=== PATIENT | male | born 1935 | race Caucasian/White ===

== ENCOUNTER → 2017-12-12 | Day surgery (SDC) | payer OTHER, MEDICARE ==
[~2017-12-12] VITALS: Ht 182.9 cm; Wt 73.9 kg
[~2017-12-12] MED LIST: AMIODARONE HCL100 M1 PO; AMIODARONE HCL200 M1 PO; ASPIRIN CHILDRE81 MG PO; AUGMENTIN 875-1 EACH PO; CEFTIN500 M1 PO; CENTRUM SILVER1 EAC3 PO; CENTRUM SILVER1 TA1 PO; DOXAZOSIN MESYLA4 M1 PO; DOXAZOSIN MESYLA4 MG PO; ELIQUIS2.5 M1 PO; ELIQUIS5 M1 PO; FUROSEMIDE20 M1 PO; GLUCOSAMINE & C1 CAP PO; GLUCOSAMINE &1 EAC1 PO; KLOR-CON M2020 ME1 PO; LASIX40 M1 PO; LEUKERAN2 MG PO; LIPITOR20 M2 PO; LOPRESSOR 25MG25 MG PO; LOPRESSOR100 M1 PO; LOPRESSOR50 M1 PO; LOPRESSOR50 MG PO; LOVAZA1 GM PO; MAGNESIUM OXID400 M1 PO; METOPROLOL SUCC25 M1 PO; MOXIFLOXACIN H400 MG PO; OMEGA-31000 M1 PO; OMEPRAZOLE20 M2 PO; POTASSIUM CHLO20 ME2 PO; PRADAXA150 M1 PO; PREDNISONE50 M1 PO; ROXICODONE5 MG PO; SPIRONOLACTONE25 M1 PO; VICODIN 5-3001 EACH PO
--- NOTE | 2017-12-12 15:53 | Operative Report ---
Operative/Inv Procedure Report Surgery Date: 12/12/17 Name of Procedure: Left Pleurx catheter removal Pre-Operative Diagnosis: Chronic left pleural effusion Post-Operative Diagnosis: Same Estimated Blood Loss: scant Surgeon/Electronic Train Control Technician: Adriel Nicholson MD,Elmer Grover Anesthesia: local monitored anesthesi Operative/Procedure Note Note: After placement of monitoring lines the patient's left chest was prepped and draped in a sterile fashion. 1% lidocaine was used local anesthetic. With gentle blunt dissection the Pleurx catheter cuff was mobilized. Scissors were used to divide some sub-cutaneous and subcuticular adhesions and the catheter was removed easily in its entirety in one piece. The catheter was sent to pathology for gross confirmation. Pressure was applied to the site and it was dressed with a dry sterile dressing. The patient tolerated the procedure well and was brought back to same day surgery in stable condition.
== END ==
LOC: STS 03:27
DX: J90 Pleural effusion, not elsewhere classified (principal); J44.9 Chronic obstructive pulmonary disease, unspecified; Z87.891 Personal history of nicotine dependence; C91.10 Chronic lymphocytic leukemia of B-cell type not having achieved remission; I48.91 Unspecified atrial fibrillation; Z79.01 Long term (current) use of anticoagulants
CPT/HCPCS: C9399; J2250

== ENCOUNTER → 2018-04-09 | Day surgery (SDC) | payer OTHER, MEDICARE ==
[~2018-04-09] VITALS: Ht 182.9 cm; Wt 77.1 kg
--- NOTE | 2018-04-09 10:46 | Operative Report ---
Operative/Inv Procedure Report Surgery Date: 04/09/18 Name of Procedure: Cataract extraction lens implantation right eye Pre-Operative Diagnosis: Age-related cataract right eye 20/25 vision 20/60 glare vision Post-Operative Diagnosis: Same Estimated Blood Loss: none Surgeon/Cross Cut Saw Operator: Kun DELATORRE,Amari Dunaway Anesthesia: local monitored anesthesi Complications: None Operative/Procedure Note Note: The patient was brought to the operating room standard monitoring equipment was attached the patient was prepped and draped in the usual fashion for intraocular surgery. A lid speculum was placed to retract the lids. The case was begun by making 1 partial-thickness corneal relaxing incision at 150. A temporal incision with a 2.4 mm keratome. The eye was stabilized with a Palumbo ring during this incision. 1 mL of non-preserved lidocaine was introduced into the anterior chamber to provide anesthesia. The anterior chamber was then filled and deepened with viscoelastic. A curvilinear capsulorrhexis was achieved using a 30-gauge needle and is a cystotome and capsulorrhexis was finished using a Utrata forceps. A second or paracentesis incision was made temporally with a 1 mm MVR blade. The lens was then hydrodissected with balanced salt solution and found to be rotatable. The lens was emulsified using phacoemulsification and a modified four-quadrant cracking technique. The residual cortical material was removed using automated irrigation and aspiration and as much of the anterior capsular rim was cleaned as well as possible. The posterior capsule was cleaned first with the automated machine on a low setting and then manually with a Rudy squeegee. The capsular bag was deepened with viscoelastic. The lens a Technis 1 19.5 Diopter placed into the bag under direct visualization and rotated so that the haptics were at 12 and 6:00. Viscoelastic was then removed from the eye by flushing it out and then by automated irrigation and aspiration. The eye was pressurized to a normal tone. 1/10 of a cc of vancomycin solution was introduced into the anterior chamber to provide antibiotic prophylaxis. The wounds were sealed by hydrating the stroma adjacent to them and the eye was left at a proper tone after the wounds were checked and found not to be leaking. The lid speculum was removed from the orbit. Antibiotic and steroid drops were placed on the eye and then the eye was shielded. Monitoring equipment was removed from the patient and the patient was removed from the operative suite to the holding area. The patient tolerated the procedure well and will be seen in the office tomorrow.
== END ==
LOC: STS 01:55
DX: H25.9 Unspecified age-related cataract (principal); I10 Essential (primary) hypertension; J44.9 Chronic obstructive pulmonary disease, unspecified; E78.00 Pure hypercholesterolemia, unspecified; I48.91 Unspecified atrial fibrillation; Z79.01 Long term (current) use of anticoagulants; N28.9 Disorder of kidney and ureter, unspecified
CPT/HCPCS: J2250; V2632